=== PATIENT | female | born 1960 | race Caucasian/White ===

== ENCOUNTER 2017-12-02 19:43 | Emergency (ER) | payer BC ==
[2017-12-02] MEDS ORDERED: ACETAMINOPHEN 500 MG TABLET PO STA (20:09)
[2017-12-02] MEDS ORDERED: SODIUM CHLORIDE 0.9% 1,000 ML IV ONE (20:09)
--- NOTE | 2017-12-02 20:13 | ED Physician Documentation ---
PD HPI SKIN - Stated complaint Stated Complaint: FEVER/FEMALE - Chief complaint Chief Complaint: Wound - History obtained from History obtained from: Patient - History of Present Illness Timing - onset: How many days ago (2) Timing - details: Gradual onset, Still present Location: Genitals Quality / character: Painful Similar symptoms before: No diagnosis Recently seen: Not recently seen - Additional information Additional information: Patient is a 57 year old diabetic female who is presenting to the emergency department for a lesion on her groin. Patient states that she is from [place] and flew out here for vacation. Patient had a boil on her leg that has become progressively worse and today she started spiking fevers so she came in for evaluation. Patient states that her diabetes is fairly well controlled with metformin. Review of Systems Ten Systems: 10 systems reviewed and negative Constitutional: reports: Fever GI: denies: Nausea, Vomiting, Constipation, Diarrhea Skin: reports: Lesions Musculoskeletal: reports: Extremity pain, Extremity swelling PD PAST MEDICAL HISTORY - Past Medical History Past Medical History: Yes Endocrine/Autoimmune: Type 2 diabetes HEENT: Macular degeneration - Past Surgical History Past Surgical History: Yes General: Cholecystectomy Ortho: Shoulder arthroplasty, Carpal Tunnel surgery - Present Medications Home Medications: Ambulatory Orders Medication Instructions Recorded Confirmed Amox/Clav 875/125 [Augmentin] 1 each PO Q12H #20 tablet 12/02/17 - Allergies Allergies/Adverse Reactions: Allergies Allergy/AdvReac Type Severity Reaction Status Date / Time adhesive tape AdvReac Rash Verified 12/02/17 19:51 - Social History Does the pt smoke?: No Smoking Status: Never smoker Does the pt drink ETOH?: No Does the pt have substance abuse?: No - Immunizations Immunizations are current?: Yes PD ED PE NORMAL - Vitals Vital signs reviewed: Yes - General General: Alert and oriented X 3 - HEENT HEENT: Atraumatic - Cardiac Cardiac: RRR, No murmur - Respiratory Respiratory: No respiratory distress - Abdomen Abdomen: Soft, Non tender - Neuro Neuro: Alert and oriented X 3 Eye Opening: Spontaneous Motor: Obeys Commands PD ED PE EXPANDED - Extremities DRE LE visual: 1 - abscess (central area of fluctuance and surrounding induration) Results - Vitals Vitals: Vital Signs - 24 hr 12/02/17 12/02/17 12/02/17 19:46 21:01 21:47 Temperature 38.9 C H 38.1 C H Heart Rate 108 H 85 85 Respiratory 16 24 27 H Rate Blood Pressure 174/78 H 119/54 L O2 Saturation 97 95 12/02/17 21:48 Temperature Heart Rate Respiratory Rate Blood Pressure O2 Saturation 95 Oxygen O2 Source Room air - Labs Labs: Laboratory Tests 12/02/17 12/02/17 12/02/17 20:00 20:16 20:16 WBC 15.1 H RBC 4.02 L Hgb 12.1 Hct 34.2 L MCV 85.0 MCH 30.2 MCHC 35.5 RDW 14.3 Plt Count 293 MPV 6.4 L Neut # (Auto) 11.9 H Lymph # (Auto) 2.2 Parker # (Auto) 0.8 Eos # (Auto) 0.2 Baso # (Auto) 0.0 Absolute Nucleated RBC 0.00 Nucleated RBC % 0.0 VBG pH VBG pCO2 VBG pO2 VBG HCO3 VBG Total CO2 VBG O2 Saturation VBG Base Excess Sodium 132 L Potassium 4.0 Chloride 97 L Carbon Dioxide 26 Anion Gap 9.0 BUN 12 Creatinine 0.8 Estimated GFR (MDRD) 74 L Glucose 215 H POC Whole Bld Glucose 203 H Lactic Acid Calcium 9.1 Total Bilirubin 0.7 AST 26 ALT 28 Alkaline Phosphatase 69 Total Protein 8.5 H Albumin 4.0 Globulin 4.5 H Albumin/Globulin Ratio 0.9 L Lipase 36 Serum Ketones NEGATIVE 12/02/17 12/02/17 20:16 20:16 WBC RBC Hgb Hct MCV MCH MCHC RDW Plt Count MPV Neut # (Auto) Lymph # (Auto) Parker # (Auto) Eos # (Auto) Baso # (Auto) Absolute Nucleated RBC Nucleated RBC % VBG pH 7.390 VBG pCO2 41.5 VBG pO2 29.9 VBG HCO3 24.6 VBG Total CO2 25.8 VBG O2 Saturation 57.7 L VBG Base Excess -0.4 Sodium Potassium Chloride Carbon Dioxide Anion Gap BUN Creatinine Estimated GFR (MDRD) Glucose POC Whole Bld Glucose Lactic Acid 1.4 Calcium Total Bilirubin AST ALT Alkaline Phosphatase Total Protein Albumin Globulin Albumin/Globulin Ratio Lipase Serum Ketones - Rads (name of study) ct abd pelvis Radiology: Final report received (cutaneuous abscess) Procedures - Abscess I&D (location) right gluteal region Preparation: Confirmed with ultrasound, Lidocaine 1% Incision: Incised with scalpel, Purulent drainage, Loculations broken Other: Pt tolerated well, Antibiotic prescribed PD MEDICAL DECISION MAKING - ED course Complexity details: reviewed old records, reviewed results, re-evaluated patient , considered differential, d/w patient, d/w area development consultant ED course: Patient was seen and examined at bedside. IV access was gained and labs were drawn. due to the location of patient's abscess and her comorbidities imaging was ordered. when patient returned from imaging results were reviewed, and also discussed with mail messenger contractor surgeon, Dr. Sanchez. Both radiologist and doctor gen did not think that the abscess tracked to the rectal region and there was no sign of fornier's gangrene. abscess was I/D at bedside under ultrasound guidance. There was a moderate amount of purulent discharge. Patient was able to tolerate PO without difficulty and was given detailed discharge and follow up instructions. patient required no further inpatient work up and was stable for discharge with outpatient follow up. - Sepsis Event Vital Signs: Vital Signs - 24 hr 12/02/17 12/02/17 12/02/17 19:46 21:01 21:47 Temperature 38.9 C H 38.1 C H Heart Rate 108 H 85 85 Respiratory 16 24 27 H Rate Blood Pressure 174/78 H 119/54 L O2 Saturation 97 95 12/02/17 21:48 Temperature Heart Rate Respiratory Rate Blood Pressure O2 Saturation 95 Oxygen O2 Source Room air Departure - Departure Disposition: 01 Home, Self Care Clinical Impression: Abscess Condition: Good Instructions: ED Abscess IandD Follow-Up: Trish Donovan DO [Primary Care Provider] - Within 1 week Prescriptions: Amox/Clav 875/125 [Augmentin] 1 each PO Q12H #20 tablet Comments: Your symptoms today are being caused by an abscess. It has been drained and you have been started on antibiotics. You will need to continue the antibiotics for the next 10 days. You should take motrin or tylenol as needed for pain and fevers. You should return to the emergency department for worsening symptoms.
[2017-12-02 20:23] LABS: BASOPHILS % (AUTO) 0.3 %; EOSINOPHILS # (AUTO) 0.2 10^3/uL (0.0-0.7); EOSINOPHILS % (AUTO) 1.3 %; HGB - HEMOGLOBIN 12.1 g/dL (12.0-16.0); LYMPHOCYTES # (AUTO) 2.2 10^3/uL (1.5-3.5); LYMPHOCYTES % (AUTO) 14.7 %; MEAN CORPUSCULAR HEMOGLOBIN 30.2 pg (27.0-31.0); MEAN CORPUSCULAR HGB CONC 35.5 g/dL (32.0-36.0); MEAN PLATELET VOLUME 6.4 fL (7.9-10.8); MONOCYTES # (AUTO) 0.8 10^3/uL (0.0-1.0); NEUTROPHILS # (AUTO) 11.9 10^3/uL (1.5-6.6); NEUTROPHILS % (AUTO) 78.7 %; PLT - PLATELET COUNT 293 10^3/uL (130-450); RED BLOOD COUNT 4.02 10^6/uL (4.20-5.40); RED CELL DISTRIBUTION WIDTH 14.3 % (12.0-15.0); WHITE BLOOD COUNT 15.1 x10^3/uL (4.8-10.8)
[2017-12-02 20:26] LABS: VBG BASE EXCESS -0.4 mmol/L (-2 - +2); VBG PCO2 41.5 mmHg (41-51); VBG PH 7.39 (7.31-7.41); VBG PO2 29.9 mmHg (25-47); VBG TOTAL CO2 25.8 mmol/L (24-29)
[2017-12-02 20:30] LABS: KETONES, SERUM (ACETEST) NEGATIVE (NEGATIVE)
[2017-12-02 20:35] LABS: ALBUMIN/GLOBULIN RATIO 0.9 (1.0-2.2); ALKALINE PHOSPHATASE 69 IU/L (42-121); ALT ALANINE AMINOTRANSFERASE 28 IU/L (10-60); AST ASPARTATE AMINOTRANSFERASE 26 IU/L (10-42); BILIRUBIN,TOTAL 0.7 mg/dL (0.2-1.0); BUN - BLOOD UREA NITROGEN 12 mg/dL (6-20); CALCIUM 9.1 mg/dL (8.5-10.3); CARBON DIOXIDE - CO2 26 mmol/L (21-32); CHLORIDE 97 mmol/L (101-111); CREATININE 0.8 mg/dL (0.4-1.0); GFR - MDRD 74 (>89); GLUCOSE 215 mg/dL (70-100); LIPASE 36 U/L (22-51); SODIUM 132 mmol/L (135-145); TOTAL PROTEIN 8.5 g/dL (6.7-8.2)
[2017-12-02] MEDS ORDERED: IOPAMIDOL-300 100 ML VIAL ONE (20:59)
[2017-12-02] MEDS ORDERED: IOPAMIDOL-300 100 ML VIAL IVP ONE (21:40)
--- NOTE | 2017-12-02 22:15 | CT Report ---
Procedure Date: 12/02/2017 Accession Number: [id number] / [id number] Procedure: CT - Pelvis W/ CPT Code: FULL RESULT: EXAM: CT PELVIS WITH CONTRAST. EXAM DATE: 12/02/2017 09:37 PM. CLINICAL HISTORY: Perineal abscess. COMPARISONS: None. TECHNIQUE: Routine helical CT imaging was performed through the pelvis. IV contrast: 100 mL ISOVUE 300. Enteric contrast: No. Reconstructions: Coronal and sagittal. In accordance with CT protocol optimization, one or more of the following dose reduction techniques were utilized for this exam: automated exposure control, adjustment of mA and/or KV based on patient size, or use of iterative reconstructive technique. FINDINGS: Visualized Abdominal Organs: Normal. Peritoneal Cavity/Bowel: Normal. No free fluid, free air or adenopathy. No masses or acute inflammatory process. There are multiple diverticula seen which most severely affect the sigmoid colon. No wall thickening or adjacent inflammation seen. No obstruction noted. The appendix is well visualized and normal. Small umbilical hernia containing only fat noted. Pelvic Organs: Normal. The bladder, rectum, and visualized pelvic organs are within normal limits. Vasculature: No aneurysms or other significant abnormality. Bones: No significant abnormality. Other: 1 cm reniform left inguinal lymph node, image 43. No bulky adenopathy. Predominantly gas-filled collection in the medial left gluteal region with surrounding inflammation. Little fluid is present. Possible tract to the skin surface at the medial left gluteal region on image 54. The collection measures approximately 2 x 1.7 x 3 cm. No radiopaque foreign bodies. No significant subcutaneous emphysema in the remaining portions of the peritoneum. IMPRESSION: 1. Predominantly gas-filled collection in the medial left gluteal region measuring 2 x 1.7 x 3 cm with very little fluid. Possible tract to the skin surface. Marked surrounding inflammation. Findings are compatible with a soft tissue abscess. No significant subcutaneous emphysema in the remaining perineum. 2. Diverticulosis. No obstruction or inflammation. Normal appendix. 3. Fat-containing periumbilical hernia. RADIA
[2017-12-02] MEDS ORDERED: AMPICILLIN/SULBACTAM 3 GM in SODIUM CHLORIDE 0.9% MINIBAG 100 ML IV STA (22:37)
[2017-12-02] MEDS ORDERED: LIDOCAINE 1%-EPI 1:100000 30 ML MDV SUBQ STA (22:39)
[2017-12-02 23:42] VITALS: BP 120/56
== END 2017-12-02 23:40 | disposition home or self-care (01) ==
LOC: ED 19:43
DX: L02.31 Cutaneous abscess of buttock (principal); E11.9 Type 2 diabetes mellitus without complications; Z79.84 Long term (current) use of oral hypoglycemic drugs
CPT/HCPCS: 10060; 36415; 72193; 80053; 82009; 82803; 83605; 83690; 85025; 87040; 96361; 96365; 99283; 99284; A9270; Q9967